=== PATIENT | female | born 1960 | race Caucasian/White ===

== ENCOUNTER → 2017-09-24 | Outpatient (CLI) | payer BC ==
[~2017-09-24] MED LIST: ASPIR 8181 MG PO; BIOTIN PO; CALTRATE 600+D1 EACH PO; LISINOPRIL-HCT1 EAC2 PO; OMEPRAZOLE40 MG PO
--- NOTE | 2017-09-24 11:44 | Diagnostic Imaging Report ---
EXAM: DXA BONE DENSITY INDICATIONS: Osteoporosis screening COMPARISON: None. FINDINGS: Proximal left femur total bone mineral density (BMD) (g/cm2):1.064 Femur T-score (standard deviation relative to young adult mean BMD): 1.0 Femur Z-score (standard deviation relative to age-matched control group):1.7 Proximal left femur neck bone mineral density (BMD) (g/cm2):0.967 Femur T-score (standard deviation relative to young adult mean BMD): 1.1 Femur Z-score (standard deviation relative to age-matched control group):2 to Lumbar bone mineral density (BMD) (g/cm2):1.359 Lumbar T-score (standard deviation relative to young adult mean BMD): 2.8 Lumbar Z-score (standard deviation relative to age-matched control group):4.0 Change since prior exam (%): Femur:Not applicable. Spine:Not applicable. Change since oldest prior exam (%): Femur:Not applicable. Spine:Not applicable. CONCLUSION: 1. Bone mineral density in the left femur is classified as normal. Fracture risk is not increased. 2. Bone mineral density in the spine is classified as normal. Fracture risk is not increased. World Health Organization Classification: *The Z-score is provided for informational purposes. The T-score is preferable for clinical decisions. When comparing exams, a change of >4% is considered statistically significant. SUGGESTED RECOMMENDATIONS: Normal \T\ Osteopenia:Consideration should be given to use of calcium supplementation, daily multiple vitamins and adequate exercise, as preventive measures against osteoporosis, if clinically indicated. Osteoporosis \T\ Severe Osteoporosis:In addition to the above, consideration should be given to medical therapy against osteoporosis, if clinically indicated. Josué Martinez M.D. Dictated by: Josué Martinez M.D. on 09/24/2017 at 11:44 Electronically approved by: Josué Martinez M.D. on 09/24/2017 at 11:44
== END ==
LOC: MERGE 08:54 → DX 08:54
PROVIDERS: ATTEND Internal Medicine
DX: Z12.31 Encounter for screening mammogram for malignant neoplasm of breast (principal); M81.0 Age-related osteoporosis without current pathological fracture
CPT/HCPCS: 77080

== ENCOUNTER → 2018-11-12 | Outpatient (CLI) | payer BC | LOC: MAMMO 08:25 | PROVIDERS: ATTEND Internal Medicine | DX: Z12.31 Encounter for screening mammogram for malignant neoplasm of breast (principal) | CPT/HCPCS: 77067 ==

== ENCOUNTER → 2020-06-07 | Outpatient (CLI) | payer BC | LOC: MAMMO 10:31 | PROVIDERS: ATTEND Obstetrics & Gynecology | DX: Z12.31 Encounter for screening mammogram for malignant neoplasm of breast (principal) | CPT/HCPCS: 77067 ==

== ENCOUNTER → 2021-10-02 | Outpatient (CLI) | payer BC | LOC: MAMMO 10:12 | PROVIDERS: ATTEND Internal Medicine | DX: Z12.31 Encounter for screening mammogram for malignant neoplasm of breast (principal) | CPT/HCPCS: 77067 ==

== ENCOUNTER → 2022-10-06 | Outpatient (CLI) | payer BC | LOC: MAMMO 10:35 | PROVIDERS: ATTEND Family Medicine | DX: Z12.31 Encounter for screening mammogram for malignant neoplasm of breast (principal) | CPT/HCPCS: 77067 ==

== ENCOUNTER → 2024-11-30 | Outpatient (REF) | payer BC | LOC: MAMMO 11:27 | PROVIDERS: ATTEND Family Medicine | DX: Z12.31 Encounter for screening mammogram for malignant neoplasm of breast (principal) | CPT/HCPCS: 77067 ==